=== PATIENT | male | born 1985 ===

== ENCOUNTER 2018-05-30 10:25 | Emergency (ER) | payer OTHER ==
[2018-05-30 10:31] VITALS: BMI 25.7
[2018-05-30 10:34] VITALS: O2SAT 98
--- NOTE | 2018-05-30 11:49 | RAD ---
PROCEDURE: Radiographs of the left humerus. HISTORY: s/p fall r/o fx COMPARISON: None. FINDINGS: BONES: Bone alignment and mineralization are normal. There is no acute displaced fracture or bone destruction. SOFT TISSUES: Normal. OTHER FINDINGS: None. IMPRESSION: No acute fracture or dislocation.
--- NOTE | 2018-05-30 11:50 | RAD ---
Date of service: 05/30/2018 PROCEDURE: Radiographs of the left elbow. HISTORY: s/p fall r/o fx COMPARISON: No prior. FINDINGS: BONES: Bone alignment and mineralization are normal. There is no acute displaced fracture or bone destruction. Joints Normal. SOFT TISSUES: Normal. JOINT EFFUSION: None. OTHER FINDINGS: None IMPRESSION: Unremarkable radiographs of the left elbow.
[2018-05-30 12:05] VITALS: BP 131/79; RESP 16; TEMP 98.8
[2018-05-30 12:07] VITALS: PULSE 73
--- NOTE | 2018-05-30 14:44 | C.PDOC ---
History Of Present Illness 32 year old male presents to the ED for evaluation of left arm and left elbow pain which began today. Patient states he was working on a scaffold (around 6 feet above the ground) when the scaffold gave way, causing him to slide down. Patient was not wearing a safety harness at the time. Patient notes he had just stepped onto the scaffold prior to the incident. He denies head injury, LOC, back pain, extremity numbness/weakness. Time Seen by Provider: 05/30/18 10:41 Chief Complaint (Nursing): Upper Extremity Problem/Injury History Per: Patient History/Exam Limitations: no limitations Onset/Duration Of Symptoms: Hrs Current Symptoms Are (Timing): Still Present Quality: "Pain" Additional History Per: Patient Past Medical History Reviewed: Historical Data, Nursing Documentation, Vital Signs Vital Signs: Last Vital Signs Temp 98.8 F 05/30/18 12:04 Pulse 73 05/30/18 12:04 Resp 16 05/30/18 12:04 BP 131/79 05/30/18 12:04 Pulse Ox 98 05/30/18 12:04 - Medical History PMH: No Chronic Diseases Surgical History: No Surg Hx Family History: States: Unknown Family Hx - Social History Hx Alcohol Use: No Hx Substance Use: No - Immunization History Hx Tetanus Toxoid Vaccination: No Hx Influenza Vaccination: No Hx Pneumococcal Vaccination: No Review Of Systems Musculoskeletal: Positive for: Arm Pain (left), Other (left elbow pain ) Neurological: Negative for: Weakness, Numbness, Other (head injury, LOC ) Physical Exam - Physical Exam Appears: Non-toxic, No Acute Distress Skin: Normal Color, Warm, Dry Head: Atraumatic, Normacephalic Eye(s): bilateral: Normal Inspection Chest: Symmetrical, No Deformity, No Tenderness Extremity: Normal ROM, Capillary Refill (less than 2 seconds ), Other (abrasion to medial aspect of left elbow with some swelling and tenderness ) Neurological/Psych: Oriented x3, Normal Speech, Normal Cognition, Normal Sensation ED Course And Treatment O2 Sat by Pulse Oximetry: 98 (on RA ) Pulse Ox Interpretation: Normal - Other Rad left humerus XR X-Ray: Viewed By Me, Read By Radiologist Interpretation: PROCEDURE: Radiographs of the left humerus. HISTORY: s/p fall r/o fx. COMPARISON: None. FINDINGS: BONES: Bone alignment and mineralization are normal. There is no acute displaced fracture or bone destruction. SOFT TISSUES: Normal. OTHER FINDINGS: None. IMPRESSION: No acute fracture or dislocation. left elbow XR X-Ray: Viewed By Me, Read By Radiologist Interpretation: Date of service: 05/30/2018. PROCEDURE: Radiographs of the left elbow. HISTORY: s/p fall r/o fx. COMPARISON: No prior. FINDINGS: BONES: Bone alignment and mineralization are normal. There is no acute displaced fracture or bone destruction. Joints. Normal. SOFT TISSUES: Normal. JOINT EFFUSION: None. OTHER FINDINGS: None. IMPRESSION: Unremarkable radiographs of the left elbow. Medical Decision Making Medical Decision Making: Impression: 32 year old male with left arm and elbow pain s/p fall Plan: * left elbow XR * left humerus XR * reassess and disposition Progress: On reassessment, patient is resting comfortably, showing no signs of distress and is stable for discharge. Patient is advised to f/u with PMD within 1-2 days for further evaluation. Disposition - Disposition Referrals: [facility] [Outside] [facility] [Outside] Disposition: HOME/ ROUTINE Disposition Time: 11:50 Condition: GOOD Additional Instructions: ERIK TORRES, thank you for letting us take care of you today. The emergency medical care you received today was directed at your acute symptoms. If you were prescribed any medication, please fill it and take as directed. It may take several days for your symptoms to resolve. Return to the Emergency Department if your symptoms worsen, do not improve, or if you have any other problems. Please contact your doctor or call one of the physicians/clinics you have been referred to that are listed on the Patient Visit Information form that is included in your discharge packet. Bring any paperwork you were given at discharge with you along with any medications you are taking to your follow up visit. Our treatment cannot replace ongoing medical care by a primary care provider outside of the emergency department. Thank you for allowing the [facility] team to be part of your care today. Follow up with our clinic next week for re-evaluation and further management. Prescriptions: Ibuprofen [Motrin] 600 mg PO Q6 PRN #20 tab PRN Reason: Pain, Moderate (4-7) Instructions: Muscle and Bone Pain (DC) Forms: [employer] (Indonesian) - Clinical Impression Clinical Impression: Contusion - Scribe Statement The provider has reviewed the documentation as recorded by the Scribe (Shira Brady) Provider Attestation: All medical record entries made by the Scribe were at my direction and personally dictated by me. I have reviewed the chart and agree that the record accurately reflects my personal performance of the history, physical exam, medical decision making, and the department course for this patient. I have also personally directed, reviewed, and agree with the discharge instructions and disposition.
== END 2018-05-30 12:05 | disposition home or self-care (01) ==
LOC: C.ER 10:25
DX: S50.02XA Contusion of left elbow, initial encounter (principal); W17.89XA Other fall from one level to another, initial encounter; Y92.89 Other specified places as the place of occurrence of the external cause; Y99.0 Civilian activity done for income or pay